=== PATIENT | male | born 1950 | race African-American/Black ===

== ENCOUNTER 2018-02-04 19:45 | Emergency (ER) | payer OTHER ==
[2018-02-04] MEDS ORDERED: cloNIDine HCL 0.1 MG TABLET PO ONE ×2 (20:29→22:30)
[2018-02-04] MEDS ORDERED: ONDANSETRON 4 MG/2 ML VIAL IVPB ONE (20:30)
--- NOTE | 2018-02-04 20:33 | PDOC ---
History of Present Illness - General History Source: Patient Exam Limitations: No Limitations - History of Present Illness Initial Comments: 02/04/18 20:39 The patient is a 68 year old male with past medical history of alcohol abuse, hypertension, BPH, gastric ulcer, and pancreatitis who presents to the ED with nausea, vomiting, and abdominal pain for the past day. He reports a diffuse abdominal pain with associated shakes and states he is most likely going through alcohol withdrawal. He also reports 4 episodes of nonbloody/nonbilious vomiting today, last of which was upon arrival to the ED. He reports he has stopped taking his medications for the past week because he does not like to take them when he drinks. He reports his last drink was last night. He denies any associated fevers or chills. Denies any shortness of breath, cough, or chest pain. Denies any hematemesis. Denies any urinary complaints. PAST MEDICAL HISTORY: see above PAST SURGICAL HISTORY: gastric ulcer surgery FAMILY HISTORY: no pertinent history SOCIAL HISTORY: Pt lives with family. Reports daily alcohol use (1 pint of rum /day) MEDICATIONS: reviewed ALLERGIES: As per nursing notes Review of Systems General: No fevers or chills, no weakness, no weight loss HEENT: No change in vision. No sore throat,. No ear pain CardioVascular: No chest pain or shortness of breath Respiratory:No cough, or wheezing. Gastrointestinal: (+) nausea, vomiting, abdominal pain. No diarrhea or constipation, No rectal bleeding Genitourinary: No dysuria, hematuria, or frequency Musculoskeletal: No joint or muscle pain or swelling Neurologic: No headache, vertigo, dizziness or loss of consciousness Psychiatric: nor depression Skin: No rashes or easy bruising Endocrine: no increased thirst or abnormal weight change Allergic: no skin or latex allergy All other systems reviewed and normal Physical Exam General: Well-nourished well-developed individual, no acute distress HEENT: Throat: Normal, tonsils normal, no erythema or exudate Neck: Supple, no meningeal signs, no lymphadenopathy Eyes::Pupils equal reactive and round, extraocular motion intact Chest: Nontender to palpation Cardiac: S1-S2 normal, regular rate and rhythm, no murmurs rubs or gallops Respiratory: Lungs clear to auscultation bilateral Abdomen: mildly distended, mild increased bowel sounds, nontender to palpation diffusely Extremities: Warm, dry, no cyanosis, clubbing, or edema Skin: No rashes Neuro: Alert and oriented x3, nonfocal exam, grossly intact, normal gait Psych: Normal mood and affect <Ny Pfeiffer - Last Filed: 02/04/18 21:46> - General History Source: Patient Exam Limitations: No Limitations - History of Present Illness Initial Comments: 22:00 Patient is feeling better, patient workup is still pending. 22:30 Repeat vitals show patient's blood pressure still elevated however patient is without complaints we'll give clonidine. Patient's blood pressure is most likely chronically elevated as he is relatively non-med compliant. Given the fact that he is now tolerating by mouth's and without complaints even if his blood pressure does not dramatically improve I will go ahead and discharge him. Patient shouldn't will be given a trial of by mouth's here in the emergency room prior to discharge 02/04/18 23:43 Patient remains stable his blood pressure is still elevated but improved from the last blood pressure. His workup is otherwise unremarkable with a normal white count and chemistries are normal with the exception of a mildly elevated glucose and liver enzymes most likely secondary to his chronic alcohol use. Patient discharged home with family members he was instructed to make sure that he takes his medication 02/04/18 23:45 <Yolanda Gunter I - Last Filed: 02/04/18 23:46> - General Chief Complaint: Nausea/Vomiting Stated Complaint: N&V. HIGH BLOOD PRESSURE Time Seen by Provider: 02/04/18 20:23 Past History <Ny Pfeiffer - Last Filed: 02/04/18 21:46> - Past Medical History GI Disorders: Yes (GASTRIC ULCER/ GASTRITIS/ PANCRETITIS) HTN: Yes - Surgical History Abdominal Surgery: Yes - Immunization History Immunization Up to Date: Yes - Suicide/Smoking/Psychosocial Hx Smoking History: Never smoked Have you smoked in the past 12 months: No If you are a former smoker, when did you quit?: 2008 Hx Alcohol Use: No Drug/Substance Use Hx: No Substance Use Type: Alcohol Hx Substance Use Treatment: No <Yolanda Gunter I - Last Filed: 02/04/18 23:46> - Past Medical History Allergies/Adverse Reactions: Allergies Allergy/AdvReac Type Severity Reaction Status Date / Time No Known Allergies Allergy Verified 02/04/18 20:43 Home Medications: Ambulatory Orders Aspirin [ASA -] 81 mg PO DAILY 12/29/14 Acetaminophen [Tylenol .Regular Strength -] 650 mg PO Q4H PRN #0 tablet Amlodipine Besylate [Norvasc -] 10 mg PO DAILY #30 tablet 04/19/16 Folic Acid - 1 mg PO DAILY tablet 04/19/16 Multivitamins [Multivit ([facility])] 1 tab PO DAILY #30 tab 04/19/16 Tamsulosin HCl [Flomax -] 0.4 mg PO DAILY@0830 #30 cap.er.24h 04/19/16 Thiamine HCl [Vitamin B1 -] 100 mg PO HS tablet 04/19/16 Labetalol HCl [Normodyne -] 300 mg PO BID 02/04/18 ED Treatment Course - LABORATORY CBC & Chemistry Diagram: 02/04/18 21:05 02/04/18 21:05 - RADIOLOGY Radiograph Interpretation: 02/04/18 21:46 EKG obtained at 21:43 Normal sinus at [address] or T wave changes Abnormal EKG but unchanged since prior study performed on 04/16/16 <Ny Pfeiffer - Last Filed: 02/04/18 21:46> - LABORATORY CBC & Chemistry Diagram: 02/04/18 21:05 02/04/18 21:05 <Yolanda Gunter I - Last Filed: 02/04/18 23:46> *DC/Admit/Observation/Transfer - Attestations Scribe Attestion: 02/04/18 20:43 Documentation prepared by Ny Pfeiffer, acting as biomedical analytical scientist for Yolanda Gunter MD. <Ny Pfeiffer - Last Filed: 02/04/18 21:46> <Yolanda Gunter I - Last Filed: 02/04/18 23:46> Diagnosis at time of Disposition: Hypertension, Alcohol dependence with uncomplicated withdrawal, Nausea & vomiting - Discharge Dispostion Disposition: HOME Condition at time of disposition: Good - Patient Instructions Additional Instructions: It is very important that you take your medication for your blood pressure. Your workup was negative for any acute pathology however if you do not take your medication you are developed severe complications of your chronic underlying medical problems. Return to the emergency department immediately with ANY new, persistent or worsening symptoms. Continue any medications as previously prescribed by your physician. You should follow up with your primary doctor as soon as possible regarding today's emergency department visit. . Please make sure your doctor reviews the results of your emergency evaluation. Thank you for coming to the Emergency Department today for your care. It was a pleasure to see you today. Please note that your evaluation is INCOMPLETE until you follow-up with your doctor.
[2018-02-04 20:50] VITALS: PULSE 89; TEMP 97.1; BMI 23.6
[2018-02-04] MEDS ORDERED: diazePAM 5 MG TABLET ONE (20:52)
[2018-02-04] MEDS ORDERED: ONDANSETRON 4 MG/2 ML VIAL ONE (20:52)
[2018-02-04] MEDS ORDERED: diazePAM 5 MG TABLET PO ONE (20:53)
[2018-02-04] MEDS: diazePAM CARPU-JECT 10 MG/2 ML DISP.SYRIN IVPUSH ONE ×2 (21:00→21:17)
[2018-02-04 21:30] LABS: BASO % 1.2 % (0-2.0); HEMOGLOBIN 16.1 GM/dl (11.7-16.9); LYMPH % 10.1 % (8-40); MCH 30.9 pg (25.7-33.7); MCHC 33.5 g/dl (32.0-35.9); MEAN CELL VOLUME 92.4 fl (80-96); MEAN PLT VOLUME 7.6 fl (7.5-11.1); MONO % 3.5 % (3.8-10.2); NEUT % 85.2 % (42.8-82.8); PLATELET COUNT 269 K/MM3 (134-434); RDW 13.9 % (11.9-15.9); WHITE BLOOD COUNT 9.6 K/mm3 (4.0-10.8)
[2018-02-04] MEDS ORDERED: SODIUM CHLORIDE 1,000 ML IV SCH (21:30)
[2018-02-04 21:36] LABS: INR 1.04 (0.82-1.09); PROTHROMBIN TIME (PATIENT) 11.6 SEC (10.2-13.0)
[2018-02-04 21:41] LABS: ALBUMIN 5.2 g/dl (3.5-5.0); ALK PHOS 57 U/L (32-92); ANION GAP 15 (8-16); BILIRUBIN,TOTAL 1.6 mg/dl (0.2-1.0); BLOOD UREA NITROGEN 16 mg/dl (7-18); CHLORIDE 101 mmol/L (98-107); CO2 24 mmol/L (22-28); CREATININE 1.1 mg/dl (0.6-1.3); GLUCOSE,RANDOM 124 mg/dl (74-106); POTASSIUM 3.7 mmol/L (3.5-5.1); SGOT/AST 56 U/L (10-42); SGPT/ALT 29 U/L (10-40); SODIUM 140 mmol/L (136-145); TOT PROT 8.8 g/dl (6.4-8.3)
[2018-02-04 22:23] LABS: LIPASE 155 U/L (73-393)
[2018-02-04 22:31] LABS: URINE APPEARANCE Clear; URINE BILIRUBIN 1+ (NEGATIVE); URINE BLOOD Negative (NEGATIVE); URINE COLOR YELLOW; URINE GLUCOSE (UA) Negative (NEGATIVE); URINE KETONE 2+ (NEGATIVE); URINE LEUK ESTERASE Negative (NEGATIVE); URINE NITRITE Negative (NEGATIVE); URINE PROTEIN 2+ (NEGATIVE)
[2018-02-04] MEDS ORDERED: cloNIDine HCL 0.1 MG TABLET ONE (22:33)
[2018-02-04 22:48] LABS: URINE BACTERIA FEW /hpf (NEGATIVE); URINE WBC 0-2 (0-2)
[2018-02-04 23:41] VITALS: BP 190/115
--- NOTE | 2018-02-05 13:28 | EKG ---
Test Reason : Blood Pressure : / mmHG Vent. Rate : 075 BPM Atrial Rate : 075 BPM P-R Int : 092 ms QRS Dur : 100 ms QT Int : 438 ms P-R-T Axes : 041 -04 -40 degrees QTc Int : 489 ms POOR DATA QUALITY, INTERPRETATION MAY BE ADVERSELY AFFECTED SINUS RHYTHM WITH SHORT OK LEFT VENTRICULAR HYPERTROPHY WITH REPOLARIZATION ABNORMALITY PROLONGED QT ABNORMAL ECG NO PREVIOUS ECGS AVAILABLE Confirmed by MD DIONY, GWYN ([id number]) on 02/05/2018 1:28:04 PM Referred By: GIA Confirmed By:GWYN VORA MD
== END 2018-02-04 23:46 | disposition home or self-care (01) ==
LOC: FER 19:45
PROC: 3E033GC Introduction of Other Therapeutic Substance into Peripheral Vein, Percutaneous Approach (ICD-10-PCS; principal; 2018-02-04)
DX: R11.2 Nausea with vomiting, unspecified (principal); I10 Essential (primary) hypertension
CPT/HCPCS: 36415; 80053; 80307; 81003; 81015; 82550; 82553; 83690; 84484; 85025; 85610; 93005; 99282-25; J0735